=== PATIENT | male | born 1970 | race Two or more races ===

== ENCOUNTER 2018-07-05 05:43 | Day surgery (SDC) | payer MEDICAID ==
--- NOTE | 2018-07-04 20:44 | Pre-Procedure Note/Attestation ---
Pre-Procedure Note/Attestation Complete Prior to Procedure Planned Procedure: left Procedure Narrative: Pars plana vitrectomy with endolaser Indications for Procedure Pre-Operative Diagnosis: Vitreous hemorrhage Attestation I attest that I discussed the nature of the procedure; its benefits; risks and complications; and alternatives (and the risks and benefits of such alternatives ), prior to the procedure, with the patient (or the patient's legal licensing representative). I attest that, if there was a reasonable possibility of needing a blood transfusion, the patient (or the patient's legal licensing representative) was given the [facility] standardized written summary, pursuant to the Anurag Quyen Blood Safety Act ([place] Health and Safety Code # 1645, as amended). I attest that I re-evaluated the patient just prior to the surgery and that there has been no change in the patient's H&P, except as documented below: Brice Sharp MD Jul 04, 2018 20:44
--- NOTE | 2018-07-04 20:48 | Opthalmology H&P ---
Ophthalmology H&P H&P Chief Complaint: decreased vision in left eye HPI Vision Affects Ability to: read, focus/use eyes together HPI Narrative blurry vision Exam Visual Acuity: OD: 20/200 OS: CF Eye Exam: normal OU: external exam, palpebral fissure-width, marginal reflex distance, levator function, corneas, anterior chambers; findings: lens - OD ns OS ns, fundus exam - Vitreous hemorrhage OU Assessment/Plan Diagnosis: (1) Vitreous hemorrhage, left eye Treatment Plan: other - pars plana vitrectomy with endolaser Goals of Treatment: improvement of vision, enhance quality of life Attestation Attestation The risks and benefits of the surgery as well as alternative procedures were explained to the patient in detail. Brice Sharp MD Jul 04, 2018 20:48
[~2018-07-05] VITALS: Ht 162.6 cm; Wt 56.7 kg
[2018-07-05] VITALS (8 sets, daily range): BP systolic 135–157; BP diastolic 73–95
[2018-07-05] MEDS: Tropicamide 1% Opth 15ml Soln LEFT EYE SCH ×3 (06:51→07:18)
[2018-07-05] MEDS: Cyclopentolate 1% Opth Sol 2ml LEFT EYE SCH ×3 (06:51→07:18)
[2018-07-05] MEDS: Phenylephrine 10% Opth Soln 5ml LEFT EYE SCH ×3 (06:51→07:18)
[2018-07-05] MEDS: Tobramycin Op Soln 0.3% 5ml LEFT EYE SCH ×2 (06:51→07:08)
[2018-07-05] MEDS: Diclofenac Sod 0.1% Op Soln LEFT EYE SCH ×2 (06:51→07:18)
[2018-07-05] MEDS ORDERED: Akten 3.5% 1ml Btl LEFT EYE ONE (07:00)
[2018-07-05] MEDS ORDERED: Tetracaine 0.5% Opth 4ml Soln LEFT EYE ONE (07:00)
[2018-07-05] MEDS ORDERED: Proparacaine 0.5% Opth Soln 15ml LEFT EYE ONE (07:00)
[2018-07-05] MEDS ORDERED: LANTUS SOL100 UNIT/1 SUBQ (07:16)
[2018-07-05] MEDS ORDERED: Propofol 200mg/20ml IV ONE ×2 (07:49→08:00)
[2018-07-05] MEDS ORDERED: Lidocaine 1% MPF 10mg/ml 5ml ONE (08:00)
[2018-07-05] MEDS ORDERED: BSS 500ml btl ONE (08:11)
[2018-07-05] MEDS ORDERED: BSS 15ml BTL ONE (08:11)
[2018-07-05] MEDS ORDERED: Povidone-Iodine 5% opth solution ONE (08:11)
[2018-07-05] MEDS ORDERED: Bupivacaine 0.75% 30ml vial INJ ONE (08:11)
[2018-07-05] MEDS ORDERED: Lidocaine 2% MPF 5ml Vial INJ ONE (08:11)
[2018-07-05] MEDS ORDERED: Kenalog-40 1ml Vial ONE (08:13)
[2018-07-05] MEDS ORDERED: EPINEPHrine 1mg/1ml Amp ONE (08:13)
[2018-07-05] MEDS ORDERED: Maxitrol Opth Oint 3.5gm ONE (08:13)
[2018-07-05] MEDS ORDERED: Kenalog-10 5ml Inj ONE (08:13)
[2018-07-05] MEDS ORDERED: LR 1000ml 1,000 ML IVLG SCH (08:23)
[2018-07-05] MEDS ORDERED: Norco 5mg/325mg tab ORAL PRN (08:30)
[2018-07-05] MEDS ORDERED: Atropine Sulfate 0.4mg/ml inj IVP PRN (08:30)
[2018-07-05] MEDS ORDERED: Metoclopramide 10mg/2ml Inj IVP PRN (08:30)
[2018-07-05] MEDS ORDERED: Meperidine 50mg/ml Inj(FOR RIGORS ONLY) IVP PRN (08:30)
[2018-07-05] MEDS ORDERED: HYDROcodone/Acetamin 7.5/325 tab ORAL PRN (08:30)
[2018-07-05] MEDS ORDERED: Ketorolac 30mg Inj IV PRN ×2 (08:30)
[2018-07-05] MEDS ORDERED: Midazolam 2mg/2ml Inj IVP PRN (08:30)
[2018-07-05] MEDS ORDERED: DiphenhydrAMINE 50mg/ml Inj IVP PRN (08:30)
[2018-07-05] MEDS ORDERED: fentaNYL 100 mcg/2 mL IV PRN (08:30)
[2018-07-05] MEDS ORDERED: oxyCODONE HCL/Acetaminophen 5/325mg ORAL PRN (08:30)
[2018-07-05] MEDS ORDERED: Hydromorphone 0.5mg/0.5ml inj IVP PRN (08:30)
[2018-07-05] MEDS ORDERED: LORazepam Inj 2mg/ml 1ml IV PRN (08:30)
--- NOTE | 2018-07-05 08:35 | Anethesia Preoperative Eval ---
Anesthesia Pre-op PMH/ROS General Date of Evaluation: Jul 05, 2018 Anesthesiologist: Boom ASA Score: ASA 3 Mallampati Score Class I : Soft palate, uvula, fauces, pillars visible Class II: Soft palate, uvula, fauces visible Class III: Soft palate, base of uvula visible Class IV: Only hard plate visible Mallampati Classification: Class II Surgeon: Lila Diagnosis: Vitreous Hemorrhage OS Surgical Procedure: Vitrectomy OS Anesthesia History: none Family History: no anesthesia problems Allergies: Coded Allergies: No Known Allergies (Unverified , 07/04/18) Medications: see eMAR Patient NPO?: Yes Past Medical History Cardiovascular: Reports: HTN Gastrointestinal/Genitourinary: Reports: ESRD Endocrine: Reports: DM Anesthesia Pre-op Phys. Exam Physician Exam Last Vital Signs Date Time Temp Pulse Resp B/P (MAP) Pulse Ox O2 Delivery O2 Flow Rate FiO2 07/05/18 07:11 Room Air 07/05/18 06:53 97.9 79 18 135/75 98 97.9 Constitutional: NAD Neurologic: CN 2-12 intact Cardiovascular: RRR Respiratory: CTA Gastrointestinal: S/NT/ND Airway Exam Mallampati Score: Class II MO: limited ROM: limited Teeth: missing, intact Anesthesia Pre-op A/P Labs Chemistry Test 07/05/18 06:35 Potassium Level 4.5 MMOL/L (3.5-5.1) Risk Assessment & Plan Assessment: ASA 3 Plan: GA Status Change Before Surgery: Alton Shepherd MD Jul 05, 2018 08:35
--- NOTE | 2018-07-05 08:37 | Immediate Post-Op Evaluation ---
Immediate Post-Op Evalulation Immediate Post-Op Evalulation Procedure: Vitrectomy OS Date of Evaluation: Jul 05, 2018 Time of Evaluation: 09:20 IV Fluids: 300 NS Blood Products: 0 Estimated Blood Loss: 1 Urinary Output: 0 Blood Pressure Systolic: 159 Blood Pressure Diastolic: 95 Pulse Rate: 81 Respiratory Rate: 16 O2 Sat by Pulse Oximetry: 100 Temperature (Fahrenheit): 97.7 Pain Score (1-10): 1 Nausea: No Vomiting: No Complications 0 Patient Status: awake, reacts, patent, none Hydration Status: adequate Alton Ribera MD Jul 05, 2018 08:37
--- NOTE | 2018-07-05 08:38 | 48 Hour Post Anesthesia Eval ---
Post Anesthesia Evaluation Procedure: Vitrectomy OS Date of Evaluation: Jul 05, 2018 Time of Evaluation: 09:44 Blood Pressure Systolic: 153 0: 92 Pulse Rate: 79 Respiratory Rate: 18 Temperature (Fahrenheit): 97.7 O2 Sat by Pulse Oximetry: 96 Airway: patent Nausea: No Vomiting: No Pain Intensity: 1 Hydration Status: adequate Cardiopulmonary Status: Stable Mental Status/LOC: patient returned to baseline Follow-up Care/Observations: 0 Post-Anesthesia Complications: 0 Follow-up care needed: ready to discharge Alton Ribera MD Jul 05, 2018 08:38
[2018-07-05] MEDS ORDERED: Sodium Hyaluronate 10 mg/ml 0.85ml ONE (08:46)
[2018-07-05] MEDS ORDERED: Dexamethasone 4mg/ml vial ONE (09:08)
--- NOTE | 2018-07-06 14:23 | Brief Operative Note ---
Immediate Post Operative Note Operative Note Chief Complaint: blurry vison Pre-op Diagnosis: Vitreous hemorrhage, OS Procedure: pars plana vitrectomy with endolaser, OS Post-op Diagnosis: Vitreous hemorrhage, OS Post-op Diagnosis: same as pre-op Findings: consistent w/pre-op dx studies Surgeon: Lila Anesthesiologist: Boom Anesthesia: MAC Specimen: none Complications: none Condition: stable Fluids: LR Estimated Blood Loss: none Drains: none Implant(s) used?: No Brice Sharp MD Jul 06, 2018 14:23
--- NOTE | 2018-07-06 14:25 | Operative Note - PDOC ---
Operative Note Operative Note Date of Operation/Procedure: Jul 05, 2018 Chief Complaint: blurry vison Pre-op Diagnosis: Vitreous hemorrhage, OS Procedure: pars plana vitrectomy with endolaser, OS Post-op Diagnosis: Vitreous hemorrhage, OS Post-op Diagnosis: same as pre-op Operative Findings: consistent w/pre-op dx studies Surgeon: Lila Anesthesiologist: Boom Anesthesia: MAC Specimen: none Complications: none Condition: stable Fluids: LR Estimated Blood Loss: none Drains: none Implant(s) used?: No Indications for Procedure Vitreous hemorrhage, OS Description of Procedure This patient has been complaining of decrease vision ~in the affected and seeing red. The patient complains of difficulties ~in performing activities of daily living and wants to manage personal affairs with comfort and accuracy and see well enough to move with safety at home and outdoors. ~~~~ The risks, benefits and alternatives of the procedure were discussed with the patient in the office prior to scheduling surgery. All questions from the patient were answered after the surgical procedure was explained in detail. The risks of the procedure as explained to the patient include, but are not limited to, pain, infection, bleeding, loss of vision, retinal detachment, need for further surgery, loss of lens nucleus, double vision, etc. Alternative procedures were discussed which include, to do nothing or seek a second opinion. Informed consent for this procedure was obtained from the patient. The patient was referred to a primary care physician for a cardiopulmonary clearance prior to surgery, after proper evaluation was done patient was properly scheduled for outpatient surgery. ~ The patient was brought to the operating room where the anesthesiologist established I.V. lines and cardiac monitoring leads. Mild intravenous sedation was administered. ~The patient was then prepared with a 5% solution of povidone- iodine to the conjunctival fornix and lashes, and a 5 % solution of povidone- iodine to the lids and periorbital skin. The patient was then draped and lid speculum was placed in the eye. An G 25 trocar infusion cannula was inserted in the inferotemporal quadrant, approximately 4 mm posterior to the limbus.~~The infusion cannula was confirmed to be in appropriate position prior to initiating infusion.~~~~The light pipe and the vitrector were inserted into the eye and a core vitrectomy was performed under wide field visualization.~~Therefore, the vitrectomy instrument was used to engage the posterior vitreous hemorrhage.~~Once this was done, the posterior heme was dissected using the vitrectomy instrument.~~Vitreous dissection was then extended out to the periphery as far as safely possible.~ Air Exchange was done followed by endolaser photocoagulation was then applied. Good reaction was achieved.~~~ After adequate laser application was completed, indirect ophthalmoscopy was performed.~~~The trocar was then removed.~~~After this was done, all the wounds were reinspected, confirmed to be well sealed and the eye had an appropriate intraocular pressure.~~~~Antibiotic ointment was then placed in the eye.~~Then, the eye was patched in typical fashion for ophthalmologic surgery. The patient tolerated the procedure well and was transferred to the recovery room in good condition.~~Proper postoperative management was reviewed with the patient prior to discharge and advised to follow up the next day..~usual sterile fashion. A lid speculum was then placed in the operative eye. Brice Sharp MD Jul 06, 2018 14:25
== END 2018-07-05 11:30 | disposition home or self-care (01) ==
LOC: SUR 05:43
DX: H43.12 Vitreous hemorrhage, left eye (principal); E11.22 Type 2 diabetes mellitus with diabetic chronic kidney disease; I12.0 Hypertensive chronic kidney disease with stage 5 chronic kidney disease or end stage renal disease; N18.6 End stage renal disease; Z79.4 Long term (current) use of insulin
CPT/HCPCS: 36415; 67039; 82962; 84132; J0171; J1100; J2704; J3470; J3490; Z7512; 94003; 94150

== ENCOUNTER 2018-12-26 06:59 | Day surgery (SDC) | payer OTHER ==
--- NOTE | 2018-11-04 12:37 | Opthalmology H&P ---
Ophthalmology H&P H&P Chief Complaint: decreased vision in right eye HPI Vision Affects Ability to: read, manage personal affairs Past Ocular History: retinal problems - Vitreous Hem. OD Exam Visual Acuity: OD 20/200 OS 20/100 Tension: OD 19 OS 22 Eye Exam: normal OU: external exam, palpebral fissure-width, marginal reflex distance, levator function, corneas, anterior chambers; findings: lens - NS CATARACT OD, fundus exam - RETINAL ISCHEMIA OD, VITREOUS HEMORRHAGE OD Assessment/Plan Treatment Plan: cataract extraction w/ lens implant Goals of Treatment: improvement of vision, enhance quality of life Attestation Attestation The risks and benefits of the surgery as well as alternative procedures were explained to the patient in detail. Brice Sharp MD Nov 04, 2018 12:37
--- NOTE | 2018-11-04 12:41 | Pre-Procedure Note/Attestation ---
Pre-Procedure Note/Attestation Complete Prior to Procedure Planned Procedure: right Procedure Narrative: Cataract extraction With Intraocular Lens Implant Right Eye Indications for Procedure Pre-Operative Diagnosis: Cataract Right Eye Attestation I attest that I discussed the nature of the procedure; its benefits; risks and complications; and alternatives (and the risks and benefits of such alternatives ), prior to the procedure, with the patient (or the patient's legal car sales representative). I attest that, if there was a reasonable possibility of needing a blood transfusion, the patient (or the patient's legal car sales representative) was given the [facility] standardized written summary, pursuant to the Anurag Pinole Blood Safety Act ([place] Health and Safety Code # 1645, as amended). I attest that I re-evaluated the patient just prior to the surgery and that there has been no change in the patient's H&P, except as documented below: Brice Sharp MD Nov 04, 2018 12:41
--- NOTE | 2018-12-23 11:39 | Opthalmology H&P ---
Ophthalmology H&P H&P Chief Complaint: decreased vision in right eye HPI Vision Affects Ability to: read, manage personal affairs Past Ocular History: retinal problems - PDR ME OU/ VITREOUS HEM OD HPI Narrative Blurry Vision Exam Visual Acuity: OD 20/200 OS 20/100 Tension: OD 19 OS 22 Eye Exam: normal OU: external exam, palpebral fissure-width, marginal reflex distance, levator function, corneas, anterior chambers; findings: lens - Nuclear Sclerotic Cataract, fundus exam - vitreous hemorrhage OD / PDR ME OU Assessment/Plan Treatment Plan: cataract extraction w/ lens implant Goals of Treatment: improvement of vision, enhance quality of life Attestation Attestation The risks and benefits of the surgery as well as alternative procedures were explained to the patient in detail. Brice Sharp MD Dec 23, 2018 11:39
--- NOTE | 2018-12-23 11:40 | Pre-Procedure Note/Attestation ---
Pre-Procedure Note/Attestation Complete Prior to Procedure Planned Procedure: right Procedure Narrative: Cataract Extraction With Intraocular Lens Implant Right Eye Indications for Procedure Pre-Operative Diagnosis: Nuclear Sclerotic Cataract Right Eye Attestation I attest that I discussed the nature of the procedure; its benefits; risks and complications; and alternatives (and the risks and benefits of such alternatives ), prior to the procedure, with the patient (or the patient's legal agricultural sales representative). I attest that, if there was a reasonable possibility of needing a blood transfusion, the patient (or the patient's legal agricultural sales representative) was given the [facility] standardized written summary, pursuant to the Anurag Quyen Blood Safety Act ([place] Health and Safety Code # 1645, as amended). I attest that I re-evaluated the patient just prior to the surgery and that there has been no change in the patient's H&P, except as documented below: Brice Sharp MD Dec 23, 2018 11:40
[2018-12-26] VITALS (9 sets, daily range): BP systolic 111–132; BP diastolic 58–78
[~2018-12-26] VITALS: Ht 162.6 cm; Wt 54.4 kg
[~2018-12-26 06:59] MED LIST: Akten 3.5% 1ml Btl RIGHT EYE ONE; Cyclopentolate 1% Opth Sol 2ml RIGHT EYE SCH; Diclofenac Sod 0.1% Op Soln RIGHT EYE SCH; LANTUS SOL100 UNIT/1 SUBQ; Phenylephrine 10% Opth Soln 5ml RIGHT EYE SCH; Proparacaine 0.5% Opth Soln 15ml RIGHT EYE ONE; Tetracaine 0.5% Opth 4ml Soln RIGHT EYE ONE; Tobramycin Op Soln 0.3% 5ml RIGHT EYE SCH; Tropicamide 1% Opth 15ml Soln RIGHT EYE SCH
[2018-12-26] MEDS ORDERED: Maxitrol Opth Oint 3.5gm ONE (07:00)
[2018-12-26] MEDS ORDERED: Diclofenac Sod 0.1% Op Soln RIGHT EYE SCH (07:00)
[2018-12-26] MEDS ORDERED: Proparacaine 0.5% Opth Soln 15ml RIGHT EYE ONE (07:00)
[2018-12-26] MEDS ORDERED: Pilocarpine 1% Opth 15ml Soln ONE (07:00)
[2018-12-26] MEDS ORDERED: Pred Forte 1% Opth Susp 1ml ONE (07:00)
[2018-12-26] MEDS ORDERED: Akten 3.5% 1ml Btl RIGHT EYE ONE (07:00)
[2018-12-26] MEDS ORDERED: Tetracaine 0.5% Opth 4ml Soln RIGHT EYE ONE (07:00)
[2018-12-26] MEDS ORDERED: Dexamethasone 4mg/ml vial ONE (07:00)
[2018-12-26] MEDS: Cyclopentolate 1% Opth Sol 2ml RIGHT EYE SCH ×3 (09:53→10:14)
[2018-12-26] MEDS: Tobramycin Op Soln 0.3% 5ml RIGHT EYE SCH ×3 (09:54→10:15)
[2018-12-26] MEDS: Tropicamide 1% Opth 15ml Soln RIGHT EYE SCH ×3 (09:54→10:14)
[2018-12-26] MEDS: Phenylephrine 10% Opth Soln 5ml RIGHT EYE SCH ×3 (09:54→10:14)
[2018-12-26] MEDS ORDERED: Midazolam 2mg/2ml Inj ONE (11:06)
[2018-12-26] MEDS ORDERED: fentaNYL 100 mcg/2 mL IV PRN (11:15)
--- NOTE | 2018-12-26 11:15 | Anethesia Preoperative Eval ---
Anesthesia Pre-op PMH/ROS General Date of Evaluation: Dec 26, 2018 Time of Evaluation: 11:11 Anesthesiologist: Francy ASA Score: ASA 3 Mallampati Score Class I : Soft palate, uvula, fauces, pillars visible Class II: Soft palate, uvula, fauces visible Class III: Soft palate, base of uvula visible Class IV: Only hard plate visible Mallampati Classification: Class II Surgeon: Lila Diagnosis: R eye cataract Surgical Procedure: R eye cataract extraction Anesthesia History: none Family History: no anesthesia problems Allergies: Coded Allergies: No Known Allergies (Unverified , 07/04/18) Medications: see eMAR Patient NPO?: Yes Past Medical History Cardiovascular: Reports: HTN; Denies: CAD, MS, valve dz, arrhythmia, other Pulmonary: Denies: asthma, COPD, RAMONE, other Gastrointestinal/Genitourinary: Reports: GERD, ESRD - on HD; Denies: CRI, other Neurologic/Psychiatric: Reports: depression/anxiety; Denies: dementia, CVA, TIA, other Endocrine: Reports: DM - on insulin; Denies: hypothyroidism, steroids, other HEENT: Reports: cataract (L), cataract (R), other - DM retinopathy Hematology/Immune: Reports: anemia; Denies: DVT, bleeding disorder, other Musculoskeletal/Integumentary: Denies: OA, RA, DJD, DDD, edema, other PMH Narrative: as above PSxH Narrative: See H&P Anesthesia Pre-op Phys. Exam Physician Exam Last Vital Signs Date Time Temp Pulse Resp B/P (MAP) Pulse Ox O2 Delivery O2 Flow Rate FiO2 12/26/18 10:09 Room Air 12/26/18 09:59 97.2 86 20 126/78 96 Constitutional: NAD Neurologic: CN 2-12 intact Cardiovascular: RRR, no M/R/G Respiratory: CTA Gastrointestinal: S/NT/ND Airway Exam Mallampati Score: Class II MO: full Neck: stiff ROM: limited Teeth: missing Dentures: no upper, no lower Anesthesia Pre-op A/P Labs Chemistry Test 12/26/18 10:00 Potassium Level 4.2 MMOL/L (3.5-5.1) Studies Pre-op Studies: EKG - SR Risk Assessment & Plan Assessment: ASA 3 Plan: MAC Status Change Before Surgery: No Delon Sen MD Dec 26, 2018 11:15
[2018-12-26] MEDS ORDERED: fentaNYL 100 mcg/2 mL IV ONE (11:45)
[2018-12-26] MEDS ORDERED: Propofol 200mg/20ml IV ONE (11:45)
--- NOTE | 2018-12-26 12:19 | 48 Hour Post Anesthesia Eval ---
Post Anesthesia Evaluation Procedure: R eye cataract extraction Date of Evaluation: Dec 26, 2018 Time of Evaluation: 13:10 Blood Pressure Systolic: 115 0: 74 Pulse Rate: 86 Respiratory Rate: 20 Temperature (Fahrenheit): 97.6 O2 Sat by Pulse Oximetry: 98 Airway: patent Nausea: No Vomiting: No Pain Intensity: 1 Hydration Status: adequate Cardiopulmonary Status: stable Mental Status/LOC: patient returned to baseline Follow-up Care/Observations: n/a Post-Anesthesia Complications: none Follow-up care needed: ready to discharge Delon Sen MD Dec 26, 2018 12:19
--- NOTE | 2018-12-26 12:20 | Immediate Post-Op Evaluation ---
Immediate Post-Op Evalulation Immediate Post-Op Evalulation Procedure: R eye cataract extraction Date of Evaluation: Dec 26, 2018 Time of Evaluation: 12:19 IV Fluids: 150 Blood Products: none Estimated Blood Loss: none Urinary Output: none Blood Pressure Systolic: 118 Blood Pressure Diastolic: 68 Pulse Rate: 84 Respiratory Rate: 20 O2 Sat by Pulse Oximetry: 98 Temperature (Fahrenheit): 97.6 Pain Score (1-10): 2 Nausea: No Vomiting: No Complications none Patient Status: awake, patent, none Hydration Status: adequate Delon Sen MD Dec 26, 2018 12:20
[2018-12-26] MEDS ORDERED: EPINEPHrine 1mg/1ml Amp ONE (14:19)
[2018-12-26] MEDS ORDERED: Povidone-Iodine 5% opth solution ONE (14:19)
[2018-12-26] MEDS ORDERED: BSS 15ml BTL ONE (14:19)
[2018-12-26] MEDS ORDERED: BSS 500ml btl ONE (14:19)
[2018-12-26] MEDS ORDERED: Sodium Hyaluronate 14 mg/ml 0.85ml ONE (14:19)
--- NOTE | 2018-12-27 13:00 | Brief Operative Note ---
Immediate Post Operative Note Operative Note Chief Complaint: blurry vision Pre-op Diagnosis: Nuclear Sclerotic Cataract Right Eye Procedure: phaco with IOL Post-op Diagnosis: Pseudophakia Post-op Diagnosis: same as pre-op Findings: consistent w/pre-op dx studies Surgeon: Lila Anesthesiologist: Francy Anesthesia: MAC Specimen: none Complications: none Condition: stable Fluids: LR Estimated Blood Loss: none Drains: none Implant(s) used?: Yes Brice Sharp MD Dec 27, 2018 12:59
--- NOTE | 2018-12-27 13:00 | Operative Note - PDOC ---
Operative Note Operative Note Date of Operation/Procedure: Dec 26, 2018 Chief Complaint: blurry vision Pre-op Diagnosis: Nuclear Sclerotic Cataract Right Eye Procedure: phaco with IOL Post-op Diagnosis: Pseudophakia Post-op Diagnosis: same as pre-op Operative Findings: consistent w/pre-op dx studies Surgeon: Lila Anesthesiologist: Francy Anesthesia: MAC Specimen: none Complications: none Condition: stable Fluids: LR Estimated Blood Loss: none Drains: none Implant(s) used?: Yes Indications for Procedure cataract Description of Procedure This patient has been complaining visually significant cataract in the affected eye with the best corrected visual acuity under moderate glare conditions worse. The patient complains of difficulties with glare in performing activities of daily living and wants to manage personal affairs with comfort and accuracy and see well enough to move with safety at home and outdoors. The risks, benefits and alternatives of the procedure were discussed with the patient in the office prior to scheduling surgery. All questions from the patient were answered after the surgical procedure was explained in detail. The risks of the procedure as explained to the patient include, but are not limited to, pain, infection, bleeding, loss of vision, retinal detachment, need for further surgery, loss of lens nucleus, double vision, etc. Alternative procedures were discussed which include, to do nothing or seek a second opinion. Informed consent for this procedure was obtained from the patient. The patient was referred to a primary care physician for a cardiopulmonary clearance prior to surgery, after proper evaluation was done patient was properly scheduled for outpatient surgery. The patient was brought to the operating room where the anesthesiologist established I.V. lines and cardiac monitoring leads. Mild intravenous sedation was administered. The patient was then prepared with a 5% solution of povidone -iodine to the conjunctival fornix and lashes, and a 5% solution of povidone- iodine to the lids and periorbital skin. The patient was then draped in the usual sterile fashion. A lid speculum was then placed in the operative eye. A keratome blade was then used to create a biplanar incision into the anterior chamber. Viscoelastics was then instilled into the anterior chamber. A 3-mm single pass clear corneal incision was made just anterior to the vascular arcade of the temporal limbus using a keratome. Anterior capsulorrhexis was created. The nucleus was hydrodissected and hydrodelineated, and was freely movable in the capsular bag. The nucleus was then phacoemulsified. Following the deep groove formation, the lens was split bimanually and epicortex removed under vacuum burst-mode phacoemulsification. Peripheral cortex was removed with the irrigation and aspiration handpiece. The capsular bag was expanded with viscoelastic. The intraocular lens was then inspected for right power and size and thought to be satisfactory. The implant was inspected under the microscope and found to be free of defects. The implant was inserted into the cartridge system under viscoelastic and placed in the capsular bag. The trailing haptic was positioned with the cartridge system. Viscoelastics was removed from the anterior chamber using the irrigation and aspiration unit. The corneal wound was then tested for leaks and none were found. The lid speculum were then removed. Sponge and needle counts were correct. An eye patch and shield were placed over the operative eye. The patient was taken to the recovery room in stable condition. There were no complications. The patient tolerated the procedure well. The patient was then transferred to the ambulatory surgery unit in stable and satisfactory condition , was given detailed written instructions and asked to follow up in the office the next day. Brice Sharp MD Dec 27, 2018 13:00
== END 2018-12-26 14:00 | disposition home or self-care (01) ==
LOC: SUR 06:59
DX: H25.11 Age-related nuclear cataract, right eye (principal)
CPT/HCPCS: 36415; 66984; 82962; 84132; J0171; J1100; J2250; J2704; J3010; J3370; V2632; 94003; 94150